=== PATIENT | male | born 1940 | race Caucasian/White ===

== ENCOUNTER → 2018-01-19 | Outpatient (CLI) | payer MEDICARE ==
[~2018-01-19] MED LIST: ASPIRIN325 MG PO; LISINOPRIL5 MG PO; METFORMIN HCL500 MG PO; OMEPRAZOLE20 M1 PO; SAW PALMETTO160 MG PO; SIMVASTATIN40 MG PO; TRIAM/HCTZ PO; ZANTAC PO
--- NOTE | 2018-01-19 11:36 | Diagnostic Imaging Report ---
EXAMINATION: Thyroid ultrasound. CLINICAL HISTORY: Multiple thyroid nodules COMPARISON: None. . DISCUSSION: Transverse and longitudinal images of the thyroid were obtained utilizing grayscale and color Doppler modalities. The right thyroid lobe measures 3.6 x 1.8 x 1.6 cm and shows normal echogenicity. No nodules are seen. The left thyroid lobe measures 4.5 x 1.9 x 1.5 cm and shows normal echogenicity. No nodules are seen. The thyroid isthmus measures 0.2 cm and shows normal echogenicity. No nodules are seen. No adenopathy. IMPRESSION: Normal thyroid ultrasound. Signed by: Dr. Edvin Anders M.D. on 01/19/2018 11:33 AM
== END ==
LOC: US 09:58
PROVIDERS: ATTEND Otolaryngology
DX: E04.2 Nontoxic multinodular goiter (principal)
CPT/HCPCS: 76536

== ENCOUNTER → 2019-11-02 | Outpatient (CLI) | payer MEDICARE ==
[~2019-11-02] MED LIST changes: +REGADENOSON 0.4 MG/5 ML SYR IV ONE
--- NOTE | 2019-11-02 20:07 | Myoview Stress Test ---
DATE OF STUDY: 11/02/2019 09:31:00 Stress Test - Treadmill ONLY Dictation #[id number] PROCEDURE TITLE: Rest/stress single isotope SPECT imaging with exercise stress and gated SPECT imaging. INDICATION: Hypertension. PROCEDURE IN DETAIL: The patient performed treadmill exercise using a [place] protocol exercising for 7 minutes and 16 seconds to stage III and completed estimated workload of 10.1 metabolic equivalents (METS). The heart rate was 73 beats per minute at rest and increased to 133 beats per minute at peak exercise, which was 93% of the maximum predicted heart rate. The resting blood pressure was 152/52 mmHg and decreased to 107/60 mmHg, which is hypotensive response. The resting electrocardiogram reveals normal sinus rhythm with right bundle-branch block. There were no ST-segment changes suggestive of myocardial ischemia. Myocardial perfusion imaging was performed at rest following the injection of 11 mCi of tetrofosmin. At peak pharmacologic effect, the patient was injected with 33 mCi of tetrofosmin. Gated post-stress tomographic imaging was performed. FINDINGS: Overall quality of study is fair. Left ventricular cavity is noted to be normal size on the rest and stress studies. SPECT images demonstrate a small mild perfusion defect in the inferior wall at rest that improves with stress. Gated SPECT imaging reveals normal myocardial thickening and wall motion. Overall, left ventricular systolic function was calculated to be greater than 70%. IMPRESSION: Myocardial perfusion imaging is normal. Abnormal blood pressure response to exercise. Overall, left ventricular systolic function was normal without regional wall motion abnormalities. Sanjana Tristan MD ABS/MODL /[id number]
== END ==
LOC: NM 09:12
PROVIDERS: ATTEND Internal Medicine
DX: R06.02 Shortness of breath (principal); E11.9 Type 2 diabetes mellitus without complications; I10 Essential (primary) hypertension; E78.2 Mixed hyperlipidemia
CPT/HCPCS: 78452; 93017; 93880; A9502